=== PATIENT | female | born 1990 | race Caucasian/White ===

== ENCOUNTER 2020-06-22 11:01 | Outpatient (CLI) | payer OTHER, SELFPAY ==
--- NOTE | ~2020-06-22 | US_ITS ---
EXAMINATION: US breast BI limited HISTORY: Bilateral palpable subareolar lumps in the breasts TECHNIQUE: Limited bilateral breast ultrasound is performed. FINDINGS: There is no evidence of focal abnormal cystic or solid mass in the vicinity of the reported palpable abnormalities of concern. There is a small amount of mobile echogenic material in the subar eolar ducts bilaterally. IMPRESSION: No specific sonographic correlate is identified for the reported palpable abnormality of concern in e ither breast. Further evaluation at this time should be based on clinical assessment. Continued follo w-up physical examination is recommended. There appear to be inspissated secretions in the subareolar ducts which may benefit from warm compresses on the breasts. BI-RADS Category 2: Benign finding(s). Reviewed, dictated and finalized at location A. GER SOURCING IMPRESSION: No specific sonographic correlate is identified for the reported palpable abnor mality of concern in either breast. Further evaluation at this time should be b ased on clinical assessment. Continued follow-up physical examination is recomm ended. There appear to be inspissated secretions in the subareolar ducts which may benefit from warm compresses on the breasts. BI-RADS Category 2: Benign finding(s).
--- NOTE | ~2020-06-22 | US_ITS ---
EXAMINATION: US soft tissue groin LT DATE: 06/22/2020 11:33 INDICATION: Left inguinal lymphadenopathy. TECHNIQUE: Multiple grayscale and Doppler ultrasound images of the left inguinal region were obtained . COMPARISON: None FINDINGS: There are normal lymph nodes in the left inguinal region. IMPRESSION: 1. No abnormal left inguinal mass or lymphadenopathy. Reviewed, dictated and finalized at location A. ESS TECHNICIAN
== END 2020-06-22 11:02 | disposition home or self-care (01) ==
PROVIDERS: Visit Provider Advanced Practice Midwife
DX: R59.0 Localized enlarged lymph nodes (principal); N63.10 Unspecified lump in the right breast, unspecified quadrant; N63.20 Unspecified lump in the left breast, unspecified quadrant
CPT/HCPCS: 76642; 76882

== ENCOUNTER 2025-05-23 01:55 | Emergency (ER) | payer SELFPAY ==
--- NOTE | ~2025-05-23 | CT_ITS ---
EXAMINATION: CT abdomen pelvis wo con DATE: 05/23/2025 04:16 INDICATION: Abdominal pain TECHNIQUE: Computed tomography (CT) of the abdomen and pelvis was performed without intravenous contrast. Automated exposure control and iterative reconstruction technique were employed. The dose-length product was 186.74 mGy-cm. COMPARISON: None FINDINGS: Lung bases are clear. Heart size is normal. No pericardial or pleural effusion. Partially visualized left breast implant. Liver, gallbladder, spleen, pancreas, left kidney and bilateral adrenal glands are normal. 3 mm stone at the upper pole of the right kidney. No other urolithiasis or hydronephrosis. Moderate amount of stool scattered throughout the colon. Small bowel and appendix are normal. 4 cm hypodense likely left adnexal cyst. Bladder, anteverted uterus and right adnexa are unremarkable. Small amount of ascites in the deep pelvis with greater than simple fluid attenuation. No abscess or free intraperitoneal gas. No pathologically enlarged abdominal or pelvic lymphadenopathy. Bones are unrem arkable. IMPRESSION: 1. Small amount of complex free fluid in the cul-de-sac which could represent hemoperitoneum since the setting of rupture of appears to be a possible 4 cm left ovarian cyst. Differential would include infectious peritonitis in the appropriate clinical setting. Reviewed, dictated and finalized at location A. MASTER IMPRESSION: 1. Small amount of complex free fluid in the cul-de-sac which could represent h emoperitoneum since the setting of rupture of appears to be a possible 4 cm lef t ovarian cyst. Differential would include infectious peritonitis in the approp riate clinical setting.
--- NOTE | ~2025-05-23 | US_ITS ---
EXAM/PROCEDURE: US pelvic complete w TV HISTORY: evaluate for torsion COMPARISON: None available. TECHNIQUE: Pelvic ultrasound performed LMP: April 29, 2025 FINDINGS: The uterus measures 8.7 x 3.8 x 5.2 cm Endometrial stripe: 12.5 mm Right ovary: 3.4 x 2.5 x 1.7 cm Left ovary: 3.7 x 3.2 x 4.3 cm Both ovaries appear normal in vascular flow. In the left ovary, mildly complex 1.9 x 1.9 cm cyst noted. Both ovaries otherwise appear normal in echotexture. Small amount of free fluid noted. IMPRESSION: No evidence of torsion. 1.9 cm complex left ovarian cyst with follow-up pelvic ultrasound in 6-8 weeks recommended. NOTE: Preliminary radiology report provided by [facility] radiologist. Reviewed, dictated and finalized at location A. GRASS MANAGEMENT PROFESSOR IMPRESSION: No evidence of torsion. 1.9 cm complex left ovarian cyst with follow-up pelvic ultrasound in 6-8 weeks recommended. NOTE: Preliminary radiology report provided by [facility] radiologist.
[2025-05-23 02:35] VITALS: BP 108/74; PULSE 72; RESP 15; TEMP 36.7; O2SAT 100
[2025-05-23 03:16] LABS: Hematocrit 37.3 % (37.0-47.0); Hemoglobin 12.3 g/dL (12.0-15.0); Immature Granulocyte Percent A 0.2 % (0-0.5); Lymphocytes Absolute Auto 1.33 K/mm3 (0.9-3.2); Mean Corpuscular HGB Conc 33.0 g/dl (32-36); Mean Corpuscular Hemoglobin 29.6 pg (26-34); Mean Corpuscular Volume 89.9 fl (80-100); Nucleated Red Blood Cells Absolute Auto 0.000 K/mm3 (0.0-0.012); Nucleated Red Blood Cells Perc 0.0 % (0.0-0.2); Platelet Count Result 248 k/mm3 (150-375); Red Blood Count 4.15 M/mm3 (4.2-5.4); White Blood Count 5.7 K/mm3 (4.5-10.0)
--- NOTE | 2025-05-23 03:22 | ED.ABDPAIN ---
HPI - Abdominal Pain General Chief Complaint: Abdominal Pain Stated Complaint: lower abdominal pain Time Seen by Provider: 05/23/25 02:12 Source: patient Mode of arrival: ambulatory Limitations: no limitations History of Present Illness HPI narrative: Patient is a 34-year-old female presents to the emergency department complaining of pelvic pain. Patient notes that she had the sudden onset of pelvic pain at 1:00 a.m. when she was up going to the go to the bathroom, was going to go urinate and send the felt pain in her left pelvic region was significantly but also in the suprapubic and right pelvic region. Notes that she had a 1st of this pain Friday that was not as severe and went away. Notes that the pain lasted tonight for multiple hours, seems to be improving but still present. Notes that and gets a lot worse with any movement or bumps in the road. Notes that is currently in a low-grade level and she is afraid to move. Denies any recent injuries or recent illness. Denies any dysuria, urinary frequency, urinary urgency. Last menstrual period was April 29. Denies any diarrhea. Denies any known fevers. Admits to nausea and vomiting with the pain. Denies any history of abdominal surgeries. Related Data Allergies Allergy/AdvReac Type Severity Reaction Status Date / Time latex Allergy Intermediate swelling Verified 02/12/18 15:34 adhesive Allergy Mild itching Verified 02/12/18 15:34 Review of Systems Review of Systems: A 10 system review of systems was completed on the patient and is negative except for what is stated in the HPI. Nursing and ancillary documentation was reviewed. Exam Narrative: CONST: No acute distress. Well nourished. HENMT: Head is normocephalic and atraumatic. Moist mucous membranes. No posterior oropharynx erythema. EYES: No scleral icterus. No conjunctival injection or pallor. PERRL. NECK: No meningeal signs. RESP: Able to speak in full sentences. Normal respiratory effort. CTAB. CARDIO: Regular rate. Regular rhythm. 2+ DP and radial pulses bilaterally. GI: Nondistended. Mild tenderness palpation in the left lower quadrant and right lower quadrant. Soft. No rebound or guarding or rigidity. Negative psoas sign. Negative obturator's sign. : No CVA tenderness to palpation. SKIN: No rashes or lesions noted on exposed skin. NEURO: Oriented x3. Moves all extremities. EXTREM/MSK/BACK: No pedal edema. PSYCH: Normal affect. Course Vital Signs Vital signs: Vital Signs Temperature 98.1 F 05/23/25 02:35 Pulse Rate 72 05/23/25 02:35 Respiratory Rate 15 05/23/25 02:35 Blood Pressure 108/74 05/23/25 02:35 Pulse Oximetry 100 05/23/25 02:35 Oxygen Delivery Room Air 05/23/25 02:35 Temperature 98.1 F 05/23/25 02:35 Pulse Rate 72 05/23/25 02:35 Respiratory Rate 15 05/23/25 02:35 Blood Pressure 108/74 05/23/25 02:35 Pulse Oximetry 100 05/23/25 02:35 Oxygen Delivery Room Air 05/23/25 02:35 MDM MDM Narrative Medical decision making narrative: Patient presents with the above complaint. Initial vitals are remarkable for no significant abnormalities. Physical examination as noted above. Plan discussed: laboratory analysis, imaging. Patient ordered IVF, analgesia, antiemetic, continuous cardiac monitoring, continuous pulse oximetry. CT of the abdomen pelvis preliminary findings radiology interpretation is limited due to lack of IV contrast. Consider pelvic ultrasound for left 4 cm adnexal cyst. No acute finding. Ultrasound pelvic/endovaginal preliminary findings radiology interpretation is no acute finding, left ovary probable hemorrhagic 2 cm follicle can be followed on subsequent imaging in 3 months. Otherwise unremarkable study. Patient was reassessed at the bedside. Patient is in no acute distress. Patient states she feels well at this time does not want any strong pain medications, will take her home Tylenol which is a liquid form. The patient has remained stable throughout the entire ED visit. Counseled patient regarding diagnostic results and potential diagnosis. Anticipatory guidance provided. Patient instructed to follow up with gynecology in 1-2 weeks. Patient counseled on: false reassurance from an emergency department evaluation; no current evidence of a medical emergency; return immediately for any new, recurrent, worsening, concerning, or refractory symptoms. Medications discussed with patient. Additional verbal and printed discharge instructions were given and discussed with the patient. Patient verbally acknowledges understanding of condition and discharge instructions. All questions were answered to the patient's satisfaction. Patient is in agreement with the plan of care. The patient is stable for discharge and was discharged without incident. Differential Diagnosis Differential Diagnosis: Ovarian cyst, ovarian torsion, appendicitis, UTI, ureterolithiasis. Lab Data MDM Lab Attestation statement: I personally reviewed the patient's lab results. Lab results narrative: CBC is without any significant abnormalities. Coags are within normal limits. Comprehensive metabolic panel reveals a sodium 136, BUN of 18. A CT testing is negative. TSH is 2.84. Lipase 78. CRP is 0.6. Magnesium is 2.0. Lactic acid is 1.0. 05/23/25 03:06 05/23/25 03:06 Labs: Lab Results 05/23/25 Range/Units 03:06 WBC 5.7 (4.5-10.0) K/mm3 RBC 4.15 L (4.2-5.4) M/mm3 Hgb 12.3 (12.0-15.0) g/dL Hct 37.3 (37.0-47.0) % MCV 89.9 (80-100) fl MCH 29.6 (26-34) pg MCHC 33.0 (32-36) g/dl RDW 12.9 (11.5-14.5) % Plt Count 248 (150-375) k/mm3 MPV 9.4 (7.4-10.4) fl Immature Gran % (Auto) 0.2 (0-0.5) % Neut % (Auto) 62.6 (45.5-73.1) % Lymph % (Auto) 23.3 (18.3-44.2) % [place] % (Auto) 8.1 (2.6-8.5) % Eos % (Auto) 4.7 H (0-4.4) % Baso % (Auto) 1.1 (0.2-1.2) % Lymph # (Auto) 1.33 (0.9-3.2) K/mm3 [place] # (Auto) 0.5 (0.1-0.6) K/mm3 Eos # (Auto) 0.3 (0-0.3) K/mm3 Baso # (Auto) 0.1 (0.0-0.1) K/mm3 Abs Immat Gran (auto) 0.01 (0.00-0.031) K/mm3 Absolute Neuts (auto) 3.6 (1.3-6.7) K/mm3 Absolute Nucleated RBC 0.000 (0.0-0.012) K/mm3 Nucleated RBC % 0.0 (0.0-0.2) % PT 12.8 (11.1-14.7) Seconds INR 0.9 APTT 26.4 (22.3-36.8) Seconds Sodium 136 L (137-145) mmol/L Potassium 3.4 (3.4-5.0) mmol/L Chloride 105 (98-107) mmol/L Carbon Dioxide 25 (22-30) mmol/L Anion Gap 6 (4-12) mmol/L BUN 18 H (7-17) mg/dL Creatinine 0.83 (0.7-1.0) mg/dL Estim Creat Clear Calc 66 ml/min Estimated GFR > 60 (59 - ) Glucose 97 (65-110) mg/dL Lactic Acid 1.0 (0.7-2.0) mmol/L Calcium 9.3 (8.4-10.2) mg/dL Magnesium 2.0 (1.6-2.3) mg/dL Total Bilirubin 0.5 (0.2-1.3) mg/dL AST 22 (14-36) U/L ALT 14 (6-35) U/L Alkaline Phosphatase 49 (38-126) U/L C-Reactive Protein 0.6 (<1.0) mg/dL Total Protein 7.5 (6.3-8.2) g/dL Albumin 4.7 (3.5-5.1) g/dL Lipase 78 (23-300) U/L TSH (Reflex) 2.840 (0.465-4.68) uIU/mL Serum HCG, Qual Negative Discharge Plan Discharge Clinical Impression: Hemorrhagic cyst of ovary Ovarian cyst Qualifiers: Laterality: left Qualified Code(s): N83.202 - Unspecified ovarian cyst, left side Patient Disposition: Home Condition: Stable Instructions: Antibiotic Form, Ovarian Cyst (ED), Ruptured Ovarian Cyst (ED), Ovarian Cyst Removal (DC) Additional Instructions: Follow-up with your user experience lead in the next 1-2 weeks, take your home pain medications as needed, rest and stay well-hydrated. Return immediately to the emergency department for any new or concerning symptoms especially chest pain, difficulty breathing, lightheadedness, palpitations, fever, new or concerning or worsening abdominal pain, or any emergent concerns for life, limb, eyesight. Patient Language: Swedish Follow-up/Referrals: Celina López CNM [Certified Nurse Laboratory Specialist, RIDDLER OPERATOR] - 1 Week UNKNOWN,DOCTOR [Non-Staff] Time of Disposition: 06:02
[2025-05-23 03:28] LABS: INR 0.9; Partial Thromboplastin Time 26.4 Seconds (22.3-36.8); Prothrombin Time 12.8 Seconds (11.1-14.7)
[2025-05-23 03:39] LABS: SPREG INTERNAL CONTROL Positive; Serum Qual hCG Negative
[2025-05-23 03:47] LABS: Alanine Aminotransferase 14 U/L (6-35); Albumin Level 4.7 g/dL (3.5-5.1); Alkaline Phosphatase 49 U/L (38-126); Anion Gap 6 mmol/L (4-12); Aspartate Amino Transferase 22 U/L (14-36); Bilirubin,Total 0.5 mg/dL (0.2-1.3); Blood Urea Nitrogen 18 mg/dL (7-17); CRP 0.6 mg/dL (<1.0); Calcium 9.3 mg/dL (8.4-10.2); Carbon Dioxide 25 mmol/L (22-30); Chloride 105 mmol/L (98-107); Estimated CRCL calculation 66 ml/min; Estimated Glomerular Filt Rate > 60; Glucose 97 mg/dL (65-110); Lipase 78 U/L (23-300); Magnesium 2.0 mg/dL (1.6-2.3); Potassium 3.4 mmol/L (3.4-5.0); Sodium 136 mmol/L (137-145); Total Protein 7.5 g/dL (6.3-8.2)
[2025-05-23 04:04] LABS: Thyroid Stimulating Hormone Reflex 2.840 uIU/mL (0.465-4.68)
[2025-05-23 04:23] VITALS: BP 99/69; PULSE 76; RESP 14; TEMP 36.6; O2SAT 100
--- NOTE | 2025-05-23 05:28 | PC.NURSE ---
Pt asked RN to take IV out since scan is done. pt refused IV medication
[2025-05-23 06:29] VITALS: BP 104/63; PULSE 69; RESP 13; TEMP 36.6; O2SAT 98
== END 2025-05-23 06:32 | disposition home or self-care (01) ==
PROVIDERS: Emergency Provider Student in an Organized Health Care Education/Training Program
DX: N83.202 Unspecified ovarian cyst, left side (principal)
CPT/HCPCS: 36415; 74176; 76830; 76856; 80053; 83605; 83690; 83735; 84443; 84703; 85025; 85610; 85730; 86140; 99284